=== PATIENT | female | born 1960 | race Caucasian/White ===

== ENCOUNTER 2017-06-04 05:19 | Inpatient (IN) | payer OTHER ==
[2017-05-26 09:00] LABS: URINE BILIRUBIN NEGATIVE (Negative); URINE BLOOD NEGATIVE (Negative); URINE CLARITY CLEAR; URINE COLOR YELLOW; URINE GLUCOSE-RANDOM* NEGATIVE (Negative); URINE KETONES NEGATIVE (Negative); URINE LEUKOCYTES-REFLEX NEGATIVE (Negative); URINE NITRITE-REFLEX NEGATIVE (Negative); URINE PROTEIN (DIPSTICK) NEGATIVE (Negative); URINE SPECIFIC GRAVITY >= 1.030 (1.005-1.035); URINE UROBILINOGEN 0.2 E.U./dl (0.2-1.0)
[2017-05-26 09:03] LABS: HEMATOCRIT 42.6 % (37.0-47.0); HEMOGLOBIN 14.4 gm/dL (12.0-15.0); MCH 29.9 pg (26.0-34.0); MCHC 33.8 g/dL (28.0-37.0); MCV 88.7 fL (80.0-100.0); RBC 4.81 mil/uL (4.20-5.00); WBC 7.2 thou/uL (4.0-11.0)
[2017-05-26 09:08] LABS: ALBUMIN 3.6 g/dL (3.4-5.0); CALCIUM 9.5 mg/dL (8.5-10.1); CREATININE 0.6 mg/dL (0.6-1.0); POTASSIUM 4.4 mmol/L (3.5-5.1)
[2017-05-26 09:20] LABS: PROTIME 9.9 Seconds (9.3-11.4)
[~2017-06-04] VITALS: Ht 154.9 cm; Wt 95.7 kg
--- NOTE | ~2017-06-04 | EKG ---
[address] [address] ELECTROCARDIOGRAM REPORT Name: SIDNEY HURTADO Room #: PRE IN ..#: [id number] Admission: Attend Phys: Jean Gamble MD Discharge: Date of : 58 Report #: [id number] THIS REPORT FOR: //name// [facility] Test Date: 2017-05-26 Test Time: 08:40:32 Pat Name: SIDNEY HURTADO Department: Room: Gender: F Pizza Chef: Libia ROSAS : 1960 Requested By: Jean Gamble Order Number: [id number] MD: Adolfo Valencia Measurements Intervals [place] Rate: 74 P: 0 PA: 187 QRS: 16 QRSD: 90 T: 24 QT: 403 QTc: 448 Interpretive Statements Sinus rhythm No previous ECG available for comparison Electronically Signed On 05-26-2017 15:05:05 GEOSPATIAL INTELLIGENCE ANALYST by Adolfo Valencia [email or web address] <ELECTRONICALLY SIGNED> By: Adolfo Valencia MD 05/26/17 1505 0840 0840 Adolfo Valencia MD /DIONNE
--- NOTE | ~2017-06-04 | O ---
[facility] [place] [address] OPERATIVE REPORT Name: SIDNEY HURTADO Room #: 402-P ADM IN M.R.#: [id number] Admission: 06/04/17 Attend Phys: Jean Gamble MD Discharge: Date of : 58 Report #: [id number] THIS REPORT FOR: //name// CC: Talha Gamble DATE OF SERVICE: 06/04/2017 PREOPERATIVE DIAGNOSES: 1. Right hip osteoarthritis. 2. Morbid obesity with a body mass index of 42. POSTOPERATIVE DIAGNOSES: 1. Right hip osteoarthritis. 2. Morbid obesity with a body mass index of 42. PROCEDURE: Right total hip arthroplasty. SURGEON: Jean Gamble MD BOARD CATCHER: Radha Day PA-C INDICATIONS FOR ASSISTANCE: Throughout the case, extensive retraction and manipulation of the hip as well as reduction and dislocation of the hip was required. This was afforded to me by my ortho assistant. ANESTHESIA: General endotracheal. IMPLANTS: [employer] size 52 R3 acetabular cup with 2 acetabular screws, a size 9 high offset Synergy press-fit stem and a size 36 -3 Oxinium head. ESTIMATED BLOOD LOSS: 200 mL. COMPLICATIONS: None. SPECIMENS: None. CONDITION UPON LEAVING THE OPERATING ROOM: Stable. INDICATIONS FOR PROCEDURE: The patient is a 57-year-old female with severe right hip osteoarthritis. She had failed conservative treatment for this and after discussion with her, she elected for right total hip arthroplasty. DESCRIPTION OF PROCEDURE: Risks, benefits, alternatives, complications were discussed in detail with the patient including but not limited to risk of anesthesia, risk of damage to nerves, arteries, blood vessels, risk for [facility] [address] [place] [address] OPERATIVE REPORT Name: SIDNEY HURTADO Room #: 402-P ADM IN M.R.#: [id number] Admission: 06/04/17 Attend Phys: Jean Gamble MD Discharge: Date of : 58 Report #: [id number] infection, bleeding, risk for leg length discrepancy, instability and need for reoperation. Informed consent was obtained from the patient. Right hip was appropriately marked in the preoperative holding area. IV Ancef was given for preoperative antibiotics. She was brought to the operating room and placed in the supine position on the operating room table. General endotracheal anesthesia was induced without complication. She was then placed in the left lateral decubitus position with the right hip uppermost. Right hip and lower extremity were prepped and draped in normal sterile fashion. Timeout was performed properly identifying the patient and procedure as well as the instrumentation and implants. All in the operating room were in agreement. A standard posterior approach to the hip was made with a #10 blade through the skin. Dissection was taken down to the fascia with Bovie cautery. Garner elevator was used to clean off the fascia and fresh #10 blade was used to make a fascial incision. This was taken proximally and distally with curved Reich scissor. Charnley retractor was placed. Trochanteric bursa was taken down with Bovie cautery. Piriformis tendon was identified, tagged and taken down with Bovie. Short external rotators were also taken down with Bovie cautery. Capsulotomy was made and capsule ends were tagged for later repair. Hip was dislocated and there was extensive osteoarthritic change of the femoral head. Femoral neck cut was made 1 cm proximal to lesser trochanter based on preoperative templating and the femoral head was removed. Deep acetabular retractors were placed and labrum was removed sharply. Pulvinar was removed with Bovie cautery. The acetabulum was then sequentially reamed up to a size 52, at which point, there was excellent bleeding cancellous bone. A size 51 trial cup was placed and found to have a good fit. A final size 52 R3 acetabular cup was then placed and two acetabular screws were placed for backup fixation. Polyethylene liner for a 36 head was placed. After this, attention was turned to the femur. This was reamed and broached up to a size 9, at which point, the size 9 broach was stable. This was trialed with high offset neck and a 36 +0 head. Hip was reduced, taken through range of motion, found to be stable, found to be somewhat tight anteriorly with equal leg lengths. The hip was dislocated and a final size 9 high offset Synergy press-fit stem was placed. This was trialed again with a 36+0 head and then a 36 -3 head. The -3 head had better leg length and acceptable stability. After this, the hip was dislocated. A final size 36 -3 Oxinium head was placed. Hip was reduced, taken through range of motion, found to be stable, found to have equal leg lengths. A periarticular injection consisting of morphine, ropivacaine, epinephrine and Toradol was placed. A gram of vancomycin was placed in the joint. The capsule and piriformis repaired with 0 FiberWire. Fascia was closed with 0 Vicryl, skin was closed with 2-0 Vicryl, 3-0 Monocryl. Dermabond and BENJI dressing was applied. The patient tolerated this procedure well and went to the recovery room under the care of Anesthesia postoperatively. <ELECTRONICALLY SIGNED> By: Jean Gamble MD 06/05/17 1045 1458 1526 Jean Gamble MD /tim
[~2017-06-04 05:19] MED LIST: AIRBORNE TABLE1 EACH PO; AMARYL2 MG PO; ASPIR 8181 MG PO; CALCIUM 600 +1 EAC1 PO; CENTRUM SILVER1 EAC4 PO; EYE PROMISE PO; KLOR-CON 1010 MEQ PO; LEVEMIR SUBQ; METFORMIN HCL500 MG PO; MOBIC15 MG PO; MOVE FREE JOIN1 EACH PO; SYNTHROID75 MCG PO; TENORMIN50 MG PO; TRULICITY1.5 MG/0.5 SUBQ; TYLENOL ARTHRI650 MG PO; VITAMIN B-121000 MC3 PO; VITAMIN C500 M1 PO; ZOCOR20 MG PO
[2017-06-04 11:05] VITALS: BP 118/71
[2017-06-04 17:00] VITALS: BP 95/59
[2017-06-04 20:00] VITALS: BP 109/58
[2017-06-05] VITALS: BP 101/55
[2017-06-05 04:00] VITALS: BP 101/59
[2017-06-05 05:56] LABS: HEMATOCRIT 32.3 % (37.0-47.0); HEMOGLOBIN 10.9 gm/dL (12.0-15.0); MCH 30.1 pg (26.0-34.0); MCHC 33.8 g/dL (28.0-37.0); MCV 89.1 fL (80.0-100.0); RBC 3.63 mil/uL (4.20-5.00); RDW 13.3 % (10.5-14.5); WBC 12.7 thou/uL (4.0-11.0)
[2017-06-05 08:44] VITALS: BP 107/55
[2017-06-05 13:55] VITALS: BP 107/55
== END 2017-06-05 15:40 | disposition home health service (06) | DRG 470 ==
LOC: TBA 05:19 → 4N 05:19 → PRE 05:26 → 4N 17:00 → ENTRNSPT 06-05 15:34 → 4N 06-05 15:40
PROVIDERS: Orthopaedic Surgery
PROC: 0SR90JA Replacement of Right Hip Joint with Synthetic Substitute, Uncemented, Open Approach (ICD-10-PCS; principal; 2017-06-04)
DX: M16.11 Unilateral primary osteoarthritis, right hip (principal); Z68.41 Body mass index [BMI] 40.0-44.9, adult; E66.01 Morbid (severe) obesity due to excess calories
CPT/HCPCS: 10790; 50010; 50101; 50382; 50414; 51771; 53000; 53078; 53368; 54118; 56524; 56527; 56528; 56530; 57095; 62110; 62900; 70005